=== PATIENT | female | born 2000 | race Asian ===

== ENCOUNTER 2022-07-23 19:44 | Emergency (ER) | payer OTHER ==
[~2022-07-23] VITALS: Ht 154.9 cm; Wt 46.7 kg
[2022-07-23 19:44] VITALS: TEMP 99
[2022-07-23 20:39] LABS: PLATELET COUNT 275 K/uL (152-353)
[2022-07-23 20:41] LABS: POTASSIUM 3.5 mmol/L (3.6-5.2)
[2022-07-23 21:05] VITALS: BP 111/66
== END 2022-07-23 21:25 | disposition home or self-care (01) ==
LOC: ED 19:44
PROVIDERS: Emergency Medicine
DX: B34.9 Viral infection, unspecified (principal); R07.89 Other chest pain; Z3A.08 8 weeks gestation of pregnancy; R10.31 Right lower quadrant pain
CPT/HCPCS: 36415; 80048; 81000; 81025; 84484; 85027; 87502; 93005; 99283

== ENCOUNTER 2022-07-30 20:56 | Emergency (ER) | payer OTHER ==
[~2022-07-30] VITALS: Ht 154.9 cm; Wt 46.3 kg
[2022-07-30 22:04] LABS: PLATELET COUNT 238 K/uL (152-353)
[2022-07-30 22:11] LABS: POTASSIUM 3.1 mmol/L (3.6-5.2)
[2022-07-30 23:45] VITALS: BP 114/66; TEMP 98.9
== END 2022-07-30 23:45 | disposition home or self-care (01) ==
LOC: ED 20:56
PROVIDERS: Emergency Medicine
DX: M54.59 Other low back pain (principal); Z3A.09 9 weeks gestation of pregnancy
CPT/HCPCS: 36415; 80053; 80307; 81000; 84702; 85027; 99282

== ENCOUNTER 2022-11-15 14:30 | Emergency (ER) | payer OTHER ==
[~2022-11-15] VITALS: Ht 154.9 cm; Wt 54.9 kg
[2022-11-15 14:35] VITALS: TEMP 98.6
[2022-11-15 15:28] LABS: PLATELET COUNT 220 K/uL (152-353)
[2022-11-15 15:41] LABS: POTASSIUM 3.6 mmol/L (3.6-5.2)
[2022-11-15 17:00] VITALS: BP 110/71
== END 2022-11-15 19:15 | disposition short-term general hospital (02) ==
LOC: ED 14:30
PROVIDERS: Family Medicine
DX: U07.1 COVID-19 (principal); R00.0 Tachycardia, unspecified; Z3A.24 24 weeks gestation of pregnancy
CPT/HCPCS: 36591; 80053; 81002; 83605; 85027; 87502; 87635; 87651; 93005; 96360; 96361; 99285; J7120; U0003